=== PATIENT | male | born 1965 | race Two or more races ===

== ENCOUNTER → 2024-09-13 | Outpatient (CLI) | payer BC, SELFPAY ==
[2024-09-13 13:59] LABS: Glucose Estimated Average 209 mg/dL (80-131); Hemoglobin A1C 8.9 % Hgb (4.8-6.0)
== END | disposition home or self-care (01) ==
PROVIDERS: PCP Family Medicine; Referring Provider Family Medicine; Visit Provider Family Medicine
DX: E11.65 Type 2 diabetes mellitus with hyperglycemia (principal)
CPT/HCPCS: 36415; 83036

== ENCOUNTER → 2025-08-01 | Outpatient (CLI) | payer BC, SELFPAY ==
--- NOTE | 2025-08-01 | XR_ITS ---
Examination: Mandible series 5 views TECHNIQUE: Jj Knight, susie, right and left lateral right mandible series 5 views Date and time: August 01, 2025, 1227 hours INDICATIONS: Left pain after left ear infection beginning 2 weeks ago. FINDINGS: Mild osteopenia. No cortical bone destruction involving the mandible No fracture No foreign body IMPRESSION: No fracture or cortical bone destruction
== END | disposition home or self-care (01) ==
LOC: CDIM 11:19
PROVIDERS: PCP Nurse Practitioner Family; Referring Provider Nurse Practitioner Family; Visit Provider Nurse Practitioner Family
DX: R68.84 Jaw pain (principal)
CPT/HCPCS: 70110